=== PATIENT | female | born 1955 | race Two or more races ===

== ENCOUNTER 2017-07-12 07:21 | Emergency (ER) | payer MEDICARE, MEDICAID ==
[~2017-07-12] VITALS: Ht 152.4 cm; Wt 145.0 kg
[~2017-07-12 07:21] MED LIST: ATOR20TA9 PO; CALC200T56 PO; GABA600T2 PO; HYDR-3307 PO; IBUP-1222 PO; KETO10TA PO; LINA5TAB PO; LOSA100T2 PO; METF10002 PO; METO50TA82 PO; PANT20TA3 PO; SERT50TA5 PO
[2017-07-12] MEDS ORDERED: ONDANSETRON ODT 4 MG PO ONE (08:30)
[2017-07-12 09:00] LABS: BASOPHILS # (AUTO) 0.03 x10^3/uL (0-0.1); BASOPHILS % (AUTO) 0 % (0-1); EOSINOPHILS # (AUTO) 0.23 x10^3/uL (0-0.4); EOSINOPHILS % (AUTO) 3 % (1-7); LYMPHOCYTES % (AUTO) 23 % (22-44); MD NO; MEAN CORPUSCULAR HGB CONC 33.6 g/dL (32.4-35.8); MEAN CORPUSCULAR VOLUME 92.3 fL (80-100); MEAN PLATELET VOLUME 9.6 fL (7.4-10.4); MONOCYTES # (AUTO) 0.51 x10^3/uL (0.2-0.8); MONOCYTES % (AUTO) 7 % (2-9); NEUTROPHILS # (AUTO) 4.79 x10^3/uL (1.8-6.8); NEUTROPHILS % (AUTO) 66 % (42-75); PLATELET COUNT 223 x10^3/uL (130-400); RED BLOOD COUNT 4.58 x10^6/uL (3.82-5.3); RED CELL DISTRIBUTION WIDTH 13.4 % (9.6-15.2)
[2017-07-12 09:13] LABS: ALBUMIN 3.3 g/dL (3.4-5.0); ANION GAP 9 mmol/L (5-15); CALCIUM 8.4 mg/dL (8.5-10.1); CHLORIDE 105 mmol/L (98-107)
[2017-07-12 09:17] LABS: ALANINE AMINOTRANSFERASE 14 U/L (12-78); ALKALINE PHOSPHATASE 124 U/L (45-117); BILIRUBIN,TOTAL 0.4 mg/dL (0.2-1.0); CREATININE 0.91 mg/dL (0.55-1.02); TOTAL PROTEIN 7.5 g/dL (6.4-8.2)
[2017-07-12] MEDS ORDERED: ONDANSETRON ODT 4 MG ONE (09:28)
[2017-07-12 09:50] LABS: MICROSCOPIC AUTO
[2017-07-12 09:52] LABS: CULTURE INDICATED? YES
[2017-07-12] MEDS ORDERED: HYDROcodone/APAP 5/325 TABLET ONE (10:18)
[2017-07-12 10:26] VITALS: BP 154/86
[2017-07-12] MEDS ORDERED: HYDROcodone/APAP 5/325 TABLET PO ONE (10:30)
== END 2017-07-12 10:29 | disposition home or self-care (01) ==
LOC: ED 09:55
DX: R10.13 Epigastric pain (principal); E11.65 Type 2 diabetes mellitus with hyperglycemia; K76.0 Fatty (change of) liver, not elsewhere classified; K85.90 Acute pancreatitis without necrosis or infection, unspecified; I10 Essential (primary) hypertension; Z90.49 Acquired absence of other specified parts of digestive tract
CPT/HCPCS: 36415; 76705; 80053; 81001; 83690; 85025; 87086; 93005; 99285; Q0162

== ENCOUNTER 2020-10-03 15:09 | Emergency (ER) | payer MEDICARE, MEDICAID ==
[~2020-10-03] VITALS: Ht 162.6 cm; Wt 175.0 kg
[~2020-10-03 15:09] MED LIST changes: +ATOR20TA37 PO; -ATOR20TA9 PO; -GABA600T2 PO; +GABA600T7 PO; +HYDR-3248 PO; -HYDR-3307 PO; -PANT20TA3 PO; +PANT20TA4 PO; +SERT50TA28 PO; -SERT50TA5 PO
[2020-10-03 15:12] VITALS: BP 145/93
--- NOTE | 2020-10-03 15:41 | NUR ---
BREAK RN: ASSUMED CARE OF PATIENT WHILE PRIMARY RN IS ON BREAK. PT C/O LEFT EYE REDNESS, PAIN, ITCHING AND DRAINAGE. PT REPORTS SHE HAD CATARACTS ON HER RIGHT EYE YESTERDAY ONLY. CALL LIGHT IN PLACE. WILL CONTINUE TO MONITOR.
--- NOTE | 2020-10-03 15:55 | NUR ---
REPORT GIVEN TO NADEGE CARVAJAL
--- NOTE | 2020-10-03 15:56 | NUR ---
REPORT FROM ASHLEE. DR. LEOS TO BEDSIDE FOR EVALUATION
[2020-10-03] MEDS ORDERED: FLUORESCEIN OPHTHALMIC 1 MG STRIP EACHEYE ONE (16:00)
[2020-10-03] MEDS ORDERED: SODIUM CHLORIDE 0.9% 1,000ML IVBOLUS ONE (16:00)
[2020-10-03] MEDS ORDERED: PROPARACAINE OPHTH 0.5%, 15ML EACHEYE ONE (16:00)
[2020-10-03 16:27] LABS: ALANINE AMINOTRANSFERASE 21 U/L (12-78); ALBUMIN 3.3 g/dL (3.4-5.0); ANION GAP 3 mmol/L (5-15); BASOPHILS % (AUTO) 0 % (0-1); CALCIUM 8.7 mg/dL (8.5-10.1); CHLORIDE 106 mmol/L (98-107); CREATININE 1.18 mg/dL (0.55-1.02); EOSINOPHILS % (AUTO) 1 % (1-7); LYMPHOCYTES % (AUTO) 19 % (22-44); MEAN CORPUSCULAR HEMOGLOBIN 32.3 pg (27.0-34.8); MEAN PLATELET VOLUME 9.1 fL (7.4-10.4); MONOCYTES % (AUTO) 12 % (2-9); NEUTROPHILS % (AUTO) 67 % (42-75); PLATELET COUNT 188 x10^3/uL (130-400); RED BLOOD COUNT 4.69 x10^6/uL (3.82-5.3); RED CELL DISTRIBUTION WIDTH 14.1 % (9.6-15.2)
[2020-10-03 16:29] LABS: SALICYLATE LEVEL < 1.7 mg/dL (2.8-20.0)
[2020-10-03] MEDS ORDERED: FLUORESCEIN OPHTHALMIC 1 MG STRIP ONE (16:29)
[2020-10-03 16:30] LABS: ALKALINE PHOSPHATASE 126 U/L (45-117); BILIRUBIN,TOTAL 0.4 mg/dL (0.2-1.0); TOTAL PROTEIN 7.5 g/dL (6.4-8.2)
--- NOTE | 2020-10-03 17:17 | NUR ---
Patient given discharge instructions and they have confirmed that they understand the instructions. Patient ambulatory with steady gait. NAD, all questions answered appropriately, denies additional needs at this time. No personal belongings left in room after discharge.
== END 2020-10-03 17:18 | disposition home or self-care (01) ==
LOC: ED 16:00
DX: H10.022 Other mucopurulent conjunctivitis, left eye (principal); H60.91 Unspecified otitis externa, right ear; E11.65 Type 2 diabetes mellitus with hyperglycemia; I10 Essential (primary) hypertension; Z90.710 Acquired absence of both cervix and uterus
CPT/HCPCS: 36415; 71045; 80053; 80299; 80320; 80329; 82140; 85025; 99284; G0480